=== PATIENT | male | born 1955 | race Caucasian/White ===

== ENCOUNTER → 2016-07-18 | Outpatient (CLI) | payer MEDICARE, OTHER ==
[~2016-07-18] MED LIST: ACCUPRIL40 MG PO; CADUET 10 MG-21 EACH PO; ECOTRIN81 M1 PO; HYDROCHLOROTH12.5 M1 PO; LASIX PO; LEVAQUIN PO
--- NOTE | ~2016-07-18 | CT57 ---
[facility] A Service of [facility] RADIOLOGY TEXT RESULTS PATIENT: ADRIANA DEL ANGEL LOCATION: [facility] : 51 UNIT #: [id number] AGE: [address]: Briseida Chamorro SEX: M ORDER DR: [id number] [address] [address] [id number] O MR#: [id number] Acc #: [id number] NAME: ADRIANA DEL ANGEL : 1955 SEX: M STUDY DATE/TIME: 07/18/2016 11:47 UNIT: [facility] ROOM: STUDY DESCRIPTION: CT Chest Wo Cont Attending Physician: Briseida Chamorro A.P.R.N. Referring Physician: Briseida Chamorro A.P.R.N. Ordering Physician: Briseida Chamorro A.P.R.N. Primary Care Physician: Moises Maya M.D. MEDICAL IMAGING REPORT This report is preliminary unless electronic signature is present. EXAM High-resolution CT chest without contrast DATE 07/18/2016 HISTORY 61-year-old male with abnormal chest x-ray. Hypertension. Emphysema. Physician's order states emphysema, wheezing. COMPARISON There are no previous chest imaging studies at this institution for comparison. Location of outside imaging studies is unknown, according to the provided history. COMPARISON None. PROCEDURE 1 mm axial images were obtained at 10 mm increments through the chest without contrast per high-resolution protocol. Prone imaging was performed through the bases. Expiratory phase imaging was obtained at the level of the arch, rose and bases. Additional 5 mm helical images were performed to account for respiratory motion degradation. This CT exam was performed with one or more of the following radiation dose reduction techniques: automatic exposure control, adjustment of mA and/or kV according to patient size, and iterative reconstruction. FINDINGS Mild centrilobular emphysematous changes are present. There is no evidence of interstitial pulmonary fibrosis, honeycombing fibrosis, or vincent UIP. There is a thick pleural calcification in the right STS. [facility] A Service [facility] RADIOLOGY TEXT RESULTS PATIENT: ADRIANA DEL ANGEL LOCATION: [facility] #: [id number] : 51 UNIT #: [id number] AGE: [address]: Briseida Chamorro SEX: M ORDER DR: [id number] thorax. Lesser degree of pleural-based calcification is seen on the left posteriorly in the [id number] thorax. No pleural effusion. No convincing evidence of air trapping on expiratory phase imaging. There is very mild cylindrical bronchiectasis in the bilateral lower lobes without abnormal bronchial wall thickening or mucous plugging. No pathologically enlarged lymph nodes. No pericardial effusion. No pleural effusion. Benign calcified granuloma the right hilum. IMPRESSION 1. Thick pleural-based calcifications bilaterally, right greater left. Correlate for history of asbestos exposure. There is no convincing evidence of interstitial fibrosis or asbestosis at this time. 2. Mild centrilobular emphysema. 3. Borderline or mild cylindrical bronchiectasis in the bilateral lower lobes without wall thickening or mucous plugging. Dictated by... Leonarda Forrest M.D. THIS IS AN ELECTRONICALLY VERIFIED REPORT Leonarda Forrest M.D. at 07/19/2016 8:48 AM ELISE/demario TD: 07/18/2016 21:39 JOB #: [id number] MEDICAL IMAGING REPORT Page 1 of 1
== END | disposition home or self-care (01) ==
LOC: SCT 11:10
DX: J43.9 Emphysema, unspecified (principal); R93.8 Abnormal findings on diagnostic imaging of other specified body structures; I10 Essential (primary) hypertension
CPT/HCPCS: 71250